=== PATIENT | female | born 1955 | race Caucasian/White ===

== ENCOUNTER 2019-09-13 19:49 | Emergency (ER) | payer BC ==
--- OUTSIDE RECORDS SUMMARY | 2019-09-13 20:01 | XMS REPORT | Continuity of Care Document ---
:1955 External Reference #:[id number] Author Name Anali Contreras NP Address [address] [place] [address] Problems Description No Information Available Social History Type Date Description Comments Sex Unknown Tobacco Use Start: Unknown Current Cigarette Smoker 1/2 Pack Daily Smoking Status Reviewed: 07/20/19 Current Cigarette Smoker 1/2 Pack Daily Tobacco Use Start: Unknown Patient is a current Smokes 1/2 PPD, which is smoker, smokes every day consistent with her previous Hx. Patient's smokes "like a chimney" so that patient gets abundant second-hand smoke. Allergies, Adverse Reactions, Alerts Active Allergies Reaction Severity Comments Date Morphine Sulfate Vomitting 07/04/1998 Bactrim Hives 12/01/2006 Medications Active Medications SIG Qnty Indications Ordering Provider Date Keflex 1 by mouth four 20caps Anali Samano 07/17/2019 500mg Capsules times a day JONATHAN Contreras Meloxicam 1 by mouth every 30tabs M25.562 Anali Samano 10/12/2018 15mg day JONATHAN Contreras Tablets Metaxalone 1 by mouth every 45tabs Anali Samano 01/12/2018 800mg 8h as needed JONATHAN Contreras Tablets muscle spasm Venlafaxine HCL ER 1 by mouth every 30tabs F41.1 Lorena Sanford 01/05/2018 day (needs to be JONATHAN Carreno 150mg Tablets ER filled capsules) 24HR Alogliptin-Metformin Take One Tablet By 60tabs E11.8 CRUZ Crawford HCL Mouth Twice A Day 12.5-1000mg Tablets Fluconazole take 1 tab today, 2tabs CRUZ Crawford 09/13/2017 150mg may repeat in 5 to Tablets 7 days Spiriva Handihaler inhale one dose by 30caps CRUZ Crawford 07/18/2016 mouth once daily 18mcg Capsules Ipratropium use bid- tid in 1box J18.9 [facility]/10[facility]2016 [place]/Albuterol nebulizer Sulfate 0.5-2.5(3)mg/3ML Solution Mirtazapine take one tablet by 30tabs G47.00 Anali Samano 06/10/2016 30mg mouth at bedtime JONATHAN Contreras Tablets Nexium 1 by mouth every 30caps Cheryl Jameson, [facility] 12/08/[address] Cabrera 1 three times a 90tabs F41.1 Anali Samano 04/30/2010 0.5mg Tablets day as needed JONATHAN Contreras anxiety [facility] Contour use as directed qd ox [facility] 05/31/2008 Blood Glucose Test - bid Strips Strips [facility] Microlet use in [facility] ox [facility] 05/31/2008 contour Misc Clopidogrel 1 by mouth every Unknown Bisulfate day 75mg Tablets History Medications Cefuroxime Axetil 1 by mouth 42tabs J01.90 Anali Samano 06/08/2019 - twice a day x JONATHAN Contreras 07/19/2019 500mg Tablets 21 days Medications Administered in Office Medication SIG Qnty Indications Ordering Provider Date Injection Subcutaneous Or Cheryl Jameson [facility] 11/28/2005 Intramuscular Injection Injection Subcutaneous Or Cheryl Jameson [facility] 11/28/2005 Intramuscular Injection Immunizations CPT Code Status Date Vaccine Lot # [id number] Given 10/12/2018 Influenza Vac, Quadrivalent, Slit Virus, Im [id number] Given 04/14/2001 Td Immunization, For Use In Individuals 7 Years Or Older Vital Signs Date Vital Result Comment 07/20/2019 10:43am BP Systolic 100 mmHg BP Diastolic 60 mmHg Heart Rate 78 /min Body Temperature 97.9 F Respiratory Rate 16 /min Height 60 inches 5'0" Weight 143.38 lb BMI (Body Mass Index) 28.0 kg/m2 06/08/2019 10:34am BP Systolic 140 mmHg BP Diastolic 80 mmHg Heart Rate 80 /min Body Temperature 97.9 F Respiratory Rate 16 /min Height 60 inches 5'0" Weight 141.00 lb BMI (Body Mass Index) 27.5 kg/m2 Results Test Date Facility Test Result H/L Range Note Comp Metabolic Panel 07/17/2019 [facility] [place] 135 mmol/L Normal 135-145 Potassium 4.4 mmol/L Normal 3.5-5.0 Chloride 101 mmol/L Normal 101-111 Co2 Carbon Dioxide 22 mmol/L Normal 22-32 Anion Gap 12 mmol/L High 2-11 Glucose 130 mg/dL High 70-100 Blood Urea Nitrogen 15 mg/dL Normal 6-24 Creatinine 0.84 mg/dL Normal 0.51-0.95 BUN/Creatinine Ratio 17.9 Normal 8-20 Calcium 10.1 mg/dL Normal 8.6-10.3 Total Protein 8.1 g/dL Normal 6.4-8.9 Albumin 4.8 g/dL Normal 3.2-5.2 Globulin 3.3 g/dL Normal 2-4 Albumin/Globulin Ratio 1.5 Normal 1-3 Total Bilirubin 0.50 mg/dL Normal 0.2-1.0 Alkaline Phosphatase 20 U/L Low 34-104 Alt 12 U/L Normal 7-52 Ast 14 U/L Normal 13-39 Egfr Non- 68.7 >60 Egfr 83.1 >60 1 CBC Auto Diff 07/17/2019 [facility] [place] White Blood Count 10.3 10^3/uL Normal 3.5- 10.8 Red Blood Count 4.84 10^6/uL Normal 3.70-4.87 Hemoglobin 14.7 g/dL Normal 12.0-16.0 Hematocrit 43 % Normal 35-47 Mean Corpuscular Volume 90 fL Normal 80-97 Mean Corpuscular Hemoglobin 30 pg Normal 27-31 Mean Corpuscular HGB Conc 34 g/dL Normal 31-36 Red Cell Distribution Width 15 % Normal 10-15 Platelet Count 269 10^3/uL Normal 150-450 Mean Platelet Volume 8.3 fL Normal 7.4-10.4 Abs Neutrophils 6.7 10^3/uL Normal 1.5-7.7 Abs Lymphocytes 2.7 10^3/uL Normal 1.0-4.8 Abs Monocytes 0.6 10^3/uL Normal 0-0.8 Abs Eosinophils 0.3 10^3/uL Normal 0-0.6 Abs Basophils 0.0 10^3/uL Normal 0-0.2 Abs Nucleated RBC 0.0 10^3/uL Granulocyte % 64.6 % Lymphocyte % 26.3 % Monocyte % 5.9 % Eosinophil % 2.8 % Basophil % 0.4 % Nucleated Red Blood Cells % 0.1 Laboratory test 07/17/2019 [facility] [place] Lactic Acid 2.1 mmol/L Critical high 0.5- 2.0 2 finding Laboratory test 07/16/2019 [facility] [place] Poc Activated 235 seconds 3 finding Clotting Time Laboratory test 07/16/2019 [facility] [place] Poc Activated 199 seconds 4 finding Clotting Time CBC Auto Diff 07/16/2019 [facility] [place] White Blood 10.7 10^3/uL Normal 3.5-10.8 Count Red Blood Count 4.76 10^6/uL Normal 3.70-4.87 Hemoglobin 14.6 g/dL Normal 12.0-16.0 Hematocrit 44 % Normal 35-47 Mean Corpuscular Volume 91 fL Normal 80-97 Mean Corpuscular Hemoglobin 31 pg Normal 27-31 Mean Corpuscular HGB Conc 34 g/dL Normal 31-36 Red Cell Distribution Width 16 % High 10-15 Platelet Count 270 10^3/uL Normal 150-450 Mean Platelet Volume 8.4 fL Normal 7.4-10.4 Abs Neutrophils 6.1 10^3/uL Normal 1.5-7.7 Abs Lymphocytes 3.2 10^3/uL Normal 1.0-4.8 Abs Monocytes 0.8 10^3/uL Normal 0-0.8 Abs Eosinophils 0.4 10^3/uL Normal 0-0.6 Abs Basophils 0.1 10^3/uL Normal 0-0.2 Abs Nucleated RBC 0.0 10^3/uL Granulocyte % 57.3 % Lymphocyte % 30.1 % Monocyte % 7.7 % Eosinophil % 3.8 % Basophil % 1.1 % Nucleated Red Blood Cells % 0.0 Inr/Protime 07/16/2019 [facility] [place] Inr 0.88 Normal 0.82-1.09 5 Basic Metabolic Panel 07/16/2019 [facility] [place] Sodium 141 mmol/L Normal 135-145 Chloride 109 mmol/L Normal 101-111 Co2 Carbon Dioxide 23 mmol/L Normal 22-32 Glucose 141 mg/dL High 70-100 Blood Urea Nitrogen 17 mg/dL Normal 6-24 Creatinine 0.80 mg/dL Normal 0.51-0.95 BUN/Creatinine Ratio 21.3 High 8-20 Calcium 10.2 mg/dL Normal 8.6-10.3 Egfr Non- 72.7 >60 Egfr 87.9 >60 6 Potassium TNP mmol/L 3.5-5.0 7 Anion Gap 9 mmol/L Normal 2-11 1 Because ethnic data is not always readily available, this report includes an eGFR for both -Americans and non- Americans. The National Kidney Disease Education Program (NKDEP) does not endorse the use of the MDRD equation for patients that are not between the ages of 18 and 70, are , have extremes of body size, muscle mass, or nutritional status, or are non- or non-. According to the National Kidney Foundation, irrespective of diagnosis, the stage of the disease is based on the level of kidney function: Stage Description GFR(mL/min/1.73 m(2)) 1 Kidney damage with normal or decreased GFR 90 2 Kidney damage with mild decrease in GFR 60-89 3 Moderate decrease in GFR 30-59 4 Severe decrease in GFR 15-29 5 Kidney failure <15 (or dialysis) 2 Critical Result LACT:2.1 Called to [id number] at: 12:21:24 by:[id number] Read back by:[id number] [facility] Severe Sepsis and Septic Shock Management Bundle Measure requires all lactic acids initially measuring >2.0 mmol/L be repeated. 3 [employer] Black Trainer: [id number] Reference Range: 74-125 seconds 4 [employer] Trainer: [id number] Reference Range: 74-125 seconds 5 Standard intensity warfarin therapeutic range: 2.0-3.0 High intensity warfarin therapeutic range: 2.5-3.5 6 Because ethnic data is not always readily available, this report includes an eGFR for both -Americans and non- Americans. The National Kidney Disease Education Program (NKDEP) does not endorse the use of the MDRD equation for patients that are not between the ages of 18 and 70, are , have extremes of body size, muscle mass, or nutritional status, or are non- or non-. According to the National Kidney Foundation, irrespective of diagnosis, the stage of the disease is based on the level of kidney function: Stage Description GFR(mL/min/1.73 m(2)) 1 Kidney damage with normal or decreased GFR 90 2 Kidney damage with mild decrease in GFR 60-89 3 Moderate decrease in GFR 30-59 4 Severe decrease in GFR 15-29 5 Kidney failure <15 (or dialysis) 7 Specimen Hemolyzed. Result may not be valid. Unable to report test result due to hemolysis. Verbal to ARY by YAHAIRA at 0813 on 07/16/19.Results read back accurately Procedures Date Code Description Status 11/06/2010 55568369 Colonoscopy Completed Medical Devices Description No Information Available Encounters Type Date Location Provider Dx Diagnosis Office Visit 06/08/2019 Main Office Anali Samano E11.8 Type 2 diabetes 10:30a JONATHAN Contreras mellitus with unspecified complications J01.90 Acute sinusitis, unspecified I70.213 [facility] [place] [facility] of extrm w intrmt omega, bi legs Assessments Date Code Description Provider 07/20/2019 E11.8 Type 2 diabetes mellitus with unspecified Anali Contreras NP complications 07/20/2019 I70.213 Atherosclerosis of [place] arteries of Anali Contreras NP extremities with inter 07/20/2019 M79.672 Pain in left foot Anali Contreras NP 06/08/2019 E11.8 Type 2 diabetes mellitus with unspecified Anali Contreras NP complications 06/08/2019 J01.90 Acute sinusitis, unspecified Anali Contreras NP 06/08/2019 I70.213 Atherosclerosis of [place] arteries of Anali Contreras NP extremities with inter Plan of Treatment 07/20/2019 - Anali Contreras NPE11.8 Type 2 diabetes mellitus with unspecified complicationsNew Labs:Hemoglobin A1c (Fma), Ordered: Microalb, Random (Fma/CMC/CTX), Ordered: 07/20/19Comments:Recommend yearly diabetic eye and foot exams, and check on blood pressure periodically. Goal blood sugar is less than 140 in the morning or A1c less than 7.I70.213 Atherosclerosis of [place] arteries of extremities with interComments:Followup with Erick Betancourt MD Anticipated left arterial angioplasty of lower pxxefvaodC52.672 Pain in left footNew Xrays:Foot Complete Min 3 Views Left, Scheduled: 07/20/19Comments:Finished a five-day course of antibiotics that was provided to you the emergency room My goal is to treat for 3 days after complete resolution, I anticipate that you are close to complete resolution and as the redness and swelling has gone down, I will refill the antibiotic in case we need a few more days. Since you are on the Plavix I don't think indomethacin is a great choice for the pain. Since the foot is improving with the antibiotics I am leaning more towards a diagnosis of cellulitis than I am gout. If the pain is not resolved at the end of the antibiotics I want you to get a foot x-ray so we can rule out bone spurs and bursitisonce your arms are healed back up from the IVs and blood draws we can check for a uric acid level as well as monitor your diabetic labsAllComments:Medication Management Patient Understands medications he 's taking? Yes No Are there Barriers to Adherence? Yes No Has the patient been asked about herbal supplements and therapies, andOTC meds? Yes No Care Plan1. Patient has been queried about patient's goals/preferences and functional/lifestyle goals at relevant visits. If relevant, describe: na2. Treatment goals as explained to the patient: above3. Are there barriers to meeting treatment goals? Yes No If Yes, please describe: disease process, comorbid conditions, polypharmacy, smoking4. Self-Management goals as described to the patient: Yes NoAs always, we strongly encourage a healthy diet and making physical activity a part of your every day life. If you have questions about how or where to start, please contact the office. Functional Status Description No Information Available Mental Status Description No Information Available Referrals Refer to Dr Garcia for Referral Status Appt Date Erick Betancourt MD Consult and treat. Office note, labs and Scheduled 2018 demographics faxed. Medical Office Building AT [facility] [place] [address] [phone]
--- OUTSIDE RECORDS SUMMARY | 2019-09-13 20:01 | XMS REPORT | Continuity of Care Document ---
:1955 External Reference #:[id number] Author Name Anali Contreras NP Address [address] [place] [address] Problems Description No Information Available Social History Type Date Description Comments Sex Unknown Tobacco Use Start: Unknown Current Cigarette Smoker 1/2 Pack Daily Smoking Status Reviewed: 08/02/19 Current Cigarette Smoker 1/2 Pack Daily Tobacco [...] Medications SIG Qnty Indications Ordering Provider Date Colchicine take two by mouth 6tabs Anali Samano 08/02/2019 0.6mg at first sign of Contreras, [employer] Tablets gout, then take one by mouth 1 hour later Tramadol HCL 1 by mouth every 8 15tabs Anali Samano 08/02/2019 50mg hours as needed Ben, [employer] Tablets Prednisone 4 by mouth x 2 19tabs M79.672 Anali Samano 08/02/2019 10mg days, then 3 by Contreras, [employer] Tablets mouth x 2 days, then 2 by mouth x 2 days,then 1 by mouth x 1 day - do not take with meloxicam Meloxicam 1 by mouth every 30tabs M25.562 Anali Samano 10/12/2018 15mg day Contreras, [employer] Tablets Metaxalone 1 by mouth every 45tabs Anali Samano 01/12/2018 800mg 8h as needed Contreras, [employer] Tablets muscle spasm Venlafaxine HCL ER 1 by mouth every 30tabs F41.1 Lorena Sanford 01/05/2018 day (needs to be JONATHAN Carreno 150mg Tablets ER filled capsules) 24HR Alogliptin-Metformin Take One Tablet By 60tabs E11.8 Cheryl Jameson [facility] HCL Mouth Twice A Day 12.5-1000mg Tablets Fluconazole take 1 tab today, 2tabs Cheryl Jameson [facility] 09/13/2017 150mg may repeat in 5 to Tablets 7 days Spiriva Handihaler inhale one dose by 30caps Cheryl Jameson [facility] 07/18/2016 mouth once daily 18mcg Capsules Mirtazapine take one tablet by 30tabs G47.00 Anali Samano 06/10/2016 30mg mouth at bedtime JONATHAN Contreras Tablets Ipratropium use bid- tid in 1box J18.9 Cheryl Jameson [facility] 06/10/2016 [place]/Albuterol nebulizer Sulfate 0.5-2.5(3)mg/3ML Solution Nexium 1 by mouth every 30caps Cheryl Jameson [facility] 12/08/[address] Cabrera 1 three times a 90tabs F41.1 Anali Samano 04/30/2010 0.5mg Tablets day as needed JONATHAN Contreras anxiety [facility] Contour use as directed qd 1Box Cheryl Jameson [facility] 05/31/2008 Blood Glucose Test - bid Strips Strips [facility] Microlet use in [facility] 1Box Cheryl Jameson [facility] 05/31/2008 contour Misc Clopidogrel 1 by mouth every Unknown Bisulfate day 75mg Tablets Lyrica 1 po qhs Unknown History Medications Keflex 1 by mouth four 20caps Anali Samano 07/17/2019 - 500mg Capsules times a day JONATHAN Contreras 07/29/2019 Cefuroxime Axetil 1 by mouth 42tabs J01.90 Anali Samano 06/08/2019 - twice a day x JONATHAN Contreras 07/19/2019 500mg Tablets 21 days Medications Administered in Office Medication SIG Qnty Indications Ordering Provider Date Injection Subcutaneous Or CRUZ Crawford 11/28/2005 Intramuscular Injection Injection Subcutaneous Or CRUZ Crawford 11/28/2005 Intramuscular Injection Immunizations CPT Code Status Date Vaccine Lot # [id number] Given 10/12/2018 Influenza Vac, Quadrivalent, Slit Virus, Im [id number] Given 04/14/2001 Td Immunization, For Use In Individuals 7 Years Or Older Vital Signs Date Vital Result Comment 08/02/2019 12:56pm BP Systolic 100 mmHg BP Diastolic 60 mmHg Heart Rate 88 /min Body Temperature 97.6 F Respiratory Rate 16 /min Height 60 inches 5'0" Weight 138.00 lb BMI (Body Mass Index) 26.9 kg/m2 07/20/2019 10:43am BP Systolic 100 mmHg BP Diastolic 60 mmHg Heart Rate 78 /min Body Temperature 97.9 F Respiratory Rate 16 /min Height 60 inches 5'0" Weight 143.38 lb BMI (Body Mass Index) 28.0 kg/m2 Results Test Date Facility Test Result H/L Range Note Laboratory test 08/02/2019 [facility] Hemoglobin A1c 6.7 % High 4.1- 5.7 finding (607)- - (Fma) Laboratory test 08/02/2019 [facility] [place](a) Uric Acid <pending> 2.5- 9.2 finding Comp Metabolic 07/17/2019 [facility] Sodium 135 mmol/L Normal 135-145 Panel Potassium 4.4 mmol/L Normal 3.5-5.0 Chloride 101 [...] 83.1 >60 1 CBC Auto Diff 07/17/2019 [facility] [place] Blood Count 10.3 10^3/uL Normal 3.5- [...] Blood Cells % 0.1 Laboratory test 07/17/2019 [facility] [place] Lactic Acid 2.1 mmol/L Critical high 0.5- 2.0 2 finding Laboratory test 07/16/2019 [facility] [place] Poc Activated 235 seconds 3 finding Clotting Time Laboratory test 07/16/2019 [facility] [place] Poc Activated 199 seconds 4 finding Clotting Time CBC Auto Diff 07/16/2019 [facility] [place] White Blood 10.7 10^3/uL Normal 3.5-10.8 Count [...] Red Blood Cells % 0.0 Inr/Protime 07/16/2019 [facility] Inr 0.88 Normal 0.82-1.09 5 Basic Metabolic Panel 07/16/2019 [facility] Sodium 141 mmol/L Normal 135-145 Chloride 109 [...] dialysis) 2 Critical Result LACT:2.1 Called to CRISPIN at: 12:21:24 by:[id number] Read back by:CRISPIN [place] Severe Sepsis and Septic Shock Management Bundle Measure requires all lactic acids initially measuring >2.0 mmol/L be repeated. 3 [employer] Professional: [id number] Reference Range: 74-125 seconds 4 Retail Services Professional: [id number] Reference Range: 74-125 seconds 5 Standard intensity [...] test result due to hemolysis. Verbal to [id number] by [id number] at 0813 on 07/16/19.Results read back accurately Procedures Date Code Description Status 11/06/2010 32151458 Colonoscopy Completed Medical Devices Description No Information Available Encounters Type Date Location Provider Dx Diagnosis Office Visit 07/20/2019 Main Office Anali Samano E11.8 Type 2 diabetes 10:30a JONATHAN Contreras mellitus with unspecified complications I70.213 [facility] [place] arteries of extrm w intrmt omega, bi legs M79.672 Pain in left foot Office Visit 06/08/2019 10:30a Main Office Anali Samano E11.8 Type 2 diabetes JONATHAN Contreras mellitus with unspecified complications J01.90 Acute sinusitis, unspecified I70.213 [facility] [place] arteries of extrm w intrmt omega, bi legs Assessments Date Code Description Provider 08/02/2019 M79.672 Pain in left foot Anali Contreras NP 08/02/2019 E11.40 Type 2 diabetes mellitus with diabetic Anali Contreras NP neuropathy, unspecified 07/20/2019 E11.8 Type 2 diabetes mellitus with unspecified Anali Contreras NP complications 07/20/2019 I70.213 Atherosclerosis of [place] arteries of Anali Contreras , [employer] extremities with inter 07/20/2019 M79.672 Pain in left foot Anali Contreras, [employer] 06/08/2019 E11.8 Type 2 diabetes mellitus with unspecified Anali Contreras, [employer] complications 06/08/2019 J01.90 Acute sinusitis, unspecified Anali Contreras, [employer] 06/08/2019 I70.213 Atherosclerosis of [place] arteries of Anali Contreras , [employer] extremities with inter Plan of Treatment 08/02/2019 - Anali Contreras, NPM79.672 Pain in left footNew Medication: Prednisone 10 mg - 4 by mouth x 2 days, then 3 by mouth x 2 days, then 2 by mouth x 2 days,then 1 bymouth x 1 day - do not take with meloxicamNew Labs:C Reactive Protein, Ordered: 08/02/19Comments:Since you are on the Plavix I don't think indomethacin is a great choice for the pain. Continue Meloxicam Add colchicine I want you to get a foot x-ray so we can rule out bone spurs and bursitisonce your arms are healed back up from the IVs and blood draws we can check for a uric acid level as well asmonitor your diabetic labsE11.40 Type 2 diabetes mellitus with diabetic neuropathy, unspecifiedNew Labs:Urine Microalbumin (Fma), Ordered: 08/02/19Comments:Recommend yearly diabetic eye and foot exams, and check on blood pressure periodically. Goal blood sugar is less than 140 in the morning or A1c less than 7.AllComments:Medication Management Patient Understands medications he 's taking? Yes No Are there Barriers to Adherence? Yes No Has the patient been asked about herbal supplements and therapies, andOTC meds? Yes No Care Plan1. Patient has been queried about patient's goals/preferences and functional/ lifestyle goals at relevant visits. If relevant, describe: na2. Treatment goals as explained to the patient: above3. Are there barriers to meeting treatment goals? Yes No If Yes, please describe:4. Self-Management goals as described to the patient: Yes NoAs always, we strongly encourage a healthy diet and making physical activity a part of your every day life. If you have questions about how or where to start, please contact the office. Functional Status Description No Information Available Mental Status Description No Information Available Referrals Refer to Reason for Referral Status Appt Date Erick Betancourt MD Consult and treat. Office note, labs and Scheduled 2018 demographics faxed. [facility] Office Building AT [facility] [place] [address] [phone]
--- OUTSIDE RECORDS SUMMARY | 2019-09-13 20:01 | XMS REPORT | Continuity of Care Document ---
:1955 External Reference #:[id number] Author Name Anali Contreras NP Address [address] [place] [address] Problems Description No Information Available Social History Type Date Description Comments Sex Unknown Tobacco Use Start: Unknown Current Cigarette Smoker 1/2 Pack Daily Smoking Status Reviewed: 09/13/19 Current Cigarette Smoker 1/2 Pack Daily Tobacco [...] Medications SIG Qnty Indications Ordering Provider Date Oxycodone HCL 1 by mouth four 28tabs M79.672 Anali Samano 09/13/2019 10mg times a day as JONATHAN Contreras Tablets needed pain Gabapentin 1 by mouth q hs 30caps E11.40 CRUZ Crawford 09/03/2019 300mg Capsules Colchicine take 1 by mouth 28tabs M79.672 CRUZ Crawford 08/02/2019 0.6mg twice a day Tablets Meloxicam 1 by mouth every 30tabs M25.562 Anali Samano 10/12/2018 15mg Tablets day JONATHAN Contreras Metaxalone 1 by mouth every 45tabs CRUZ Crawford 01/12/2018 800mg 8h as needed Tablets muscle spasm Venlafaxine HCL ER 1 by mouth every 30tabs F41.1 CRUZ Crawford 2017 day (needs to be 150mg Tablets ER 24HR filled capsules) Alogliptin-Metformin Take One Tablet 60tabs E11.8 Cheryl Jameson [facility] 2016 HCL By Mouth Twice A 12.5-1000mg Tablets Day E11.40 Fluconazole take 1 tab today, 2tabs Cheryl Jameson, [facility] 09/13/2017 150mg Tablets may repeat in 5 to 7 days Spiriva Handihaler inhale one dose by 30caps Cheryl Jameson, [facility] 07/18/2016 18mcg mouth once daily Capsules Ipratropium use bid- tid in 1box J18.9 Cheryl Jameson [facility] 06/10/2016 [place]/Albuterol nebulizer Sulfate 0.5-2.5(3)mg/3ML Solution Mirtazapine take one tablet by 30tabs G47.00 Anali Samano 06/10/2016 30mg Tablets mouth at bedtime JONATHAN Contreras Nexium 1 by mouth every 30caps Cheryl Jameson [facility] 12/08/[address] day Xanax 1 three times a day 90tabs F41.1 Cheryl Jameson [facility] 04/30/2010 0.5mg Tablets as needed anxiety Ascensia Contour Blood use as directed qd 1Box Cheryl Jameson [facility] 2007 Glucose Test Strips - bid Strips Ascensia Microlet use in ascensia 1Box Cheryl Jameson [facility] 05/31/2008 Misc contour Clopidogrel Bisulfate 1 by mouth every Unknown 75mg day Tablets Atorvastatin Calcium 1 by mouth every Unknown 20mg day MD Aisa Tablets History Medications Gabapentin take two to four 60caps E11.40 Cheryl Jameson, 08/27/2019 - 100mg capsules by mouth [facility] 09/03/2019 Capsules at bedtime Tramadol HCL 1 by mouth every 15tabs Anali Samano 08/02/2019 - 50mg 8 hours as needed JONATHAN Contreras 08/12/2019 Tablets Prednisone 4 by mouth x 2 19tabs M79.672 Anali Samano 08/02/2019 - 10mg days, then 3 by JONATHAN Contreras 08/25/2019 Tablets mouth x 2 days, then 2 by mouth x 2 days,then 1 by mouth x 1 day - do not take with meloxicam Keflex 1 by mouth four 20caps Anali Samano 07/17/2019 - 500mg times a day JONATHAN Contreras 07/29/2019 Capsules Cefuroxime Axetil 1 by mouth twice 42tabs J01.90 Anali Samano 06/08/2019 - a day x 21 days JONATHAN Contreras 07/19/2019 500mg Tablets Medications Administered in Office Medication SIG Qnty Indications Ordering Provider Date Injection Subcutaneous Or CRUZ Crawford 11/28/2005 Intramuscular Injection Injection Subcutaneous Or GENESIS CrawfordP 11/28/2005 Intramuscular Injection Immunizations CPT Code Status Date Vaccine Lot # [id number] Given 10/12/2018 Influenza Vac, Quadrivalent, Slit Virus, Im [id number] Given 04/14/2001 Td Immunization, For Use In Individuals 7 Years Or Older Vital Signs Date Vital Result Comment 09/13/2019 6:29pm BP Systolic 128 mmHg BP Diastolic 60 mmHg Heart Rate 90 /min Body Temperature 97.3 F Respiratory Rate 16 /min Height 60 inches 5'0" Weight 142.12 lb BMI (Body Mass Index) 27.8 kg/m2 08/27/2019 3:38pm BP Systolic 120 mmHg BP Diastolic 70 mmHg Heart Rate 72 /min Body Temperature 98.5 F Respiratory Rate 18 /min Weight 142.00 lb Results Test Date Facility Test Result H/L Range Note Uric Acid 24HR Urine 08/30/2019 [facility] Uric Acid, U 429 mg/24h 1, 2 Collection Duration 24 h Urine Volume 1300 mL Uric Acid Concentration 33 mg/dL 3 Laboratory test 08/04/2019 [facility] C Reactive 7.48 mg/L Normal <8.01 4 finding Protein Laboratory test 08/02/2019 [facility] Hemoglobin A1c 6.7 % High 4.1- 5.7 finding (607)- - (Fma) Laboratory test 08/02/2019 [facility](a) Uric Acid 8.1 mg/dL 2.5- 9.2 finding CBC Electronic 08/02/2019 [facility](a) WBC 12.4 High 4.0-10.0 5 Fma x10^3/UL RBC 4.99 x10^6/UL 3.93-6.00 HGB 15.0 g/dL 12.0-17.0 HCT 46 % 35-50 MCV 93.0 fL 80.0-95.0 MCH 30.1 pg 25.6-32.2 MCHC 32.3 g/dL 32.2-36.0 RDW-CV 14.4 % 11.6-14.4 PLT 385 x10^3/UL 163-400 MPV 10.0 fL 9.4-12.4 [place]# 8.83 x10^3/UL High 1.56-6.13 Lymph# 2.42 x10^3/UL 1.18-3.74 [place]# 0.62 x10^3/UL 0.24-0.82 Eos # 0.3 x10^3/UL 0.0-0.5 Baso # 0.13 x10^3/UL High 0.01-0.08 [place]% 70.0 % 34.0-70.0 Lymph % 20.0 % 20.0-52.0 [place]% 5.0 % 5.0-12.0 Eos% 2.6 % 0.7-7.0 Baso% 1.1 % 0.1-1.2 Comp Metabolic Panel 07/17/2019 [facility] Sodium 135 mmol/L Normal 135-145 Potassium 4.4 [...] Egfr Non- 68.7 >60 Egfr 83.1 >60 6 CBC Auto Diff 07/17/2019 [facility] White Blood Count 10.3 10^3/uL Normal 3.5- [...] Blood Cells % 0.1 Laboratory test 07/17/2019 [facility] Lactic Acid 2.1 mmol/L Critical high 0.5- 2.0 7 finding Laboratory test 07/16/2019 [facility] Poc Activated 235 seconds 8 finding Clotting Time Laboratory test 07/16/2019 [facility] Poc Activated 199 seconds 9 finding Clotting Time CBC Auto Diff 07/16/2019 [facility] White Blood 10.7 10^3/uL Normal 3.5-10.8 Count [...] Red Blood Cells % 0.0 Inr/Protime 07/16/2019 [facility] Inr 0.88 Normal 0.82-1.09 10 Basic Metabolic Panel 07/16/2019 [facility] Sodium 141 mmol/L Normal 135-145 Chloride 109 mmol/L Normal 101-111 Co2 Carbon Dioxide 23 mmol/L Normal 22-32 Glucose 141 mg/dL High 70-100 Blood Urea Nitrogen 17 mg/dL Normal 6-24 Creatinine 0.80 mg/dL Normal 0.51-0.95 BUN/Creatinine Ratio 21.3 High 8-20 Calcium 10.2 mg/dL Normal 8.6-10.3 Egfr Non- 72.7 >60 Egfr 87.9 >60 11 Potassium TNP mmol/L 3.5-5.0 12 Anion Gap 9 mmol/L Normal 2-11 1 COLLECTION START 08/29/19 0900 END 08/30/19 0700 2 REFERENCE VALUE <750 (Diet-Dependent) ADDITIONAL INFORMATION This test has been modified from the beauty school instructor's instructions. Its performance characteristics were determined by [facility] in a manner consistent with CLIA requirements. This test has not been cleared or approved by the U.S. Food and Drug Administration. The reference value is for a 24-hour collection. Specimens collected for other than a 24-hour time period are reported in unit of mg/dL for which reference values are not established. 3 Test Performed by: [address] [address] Piercing Artist: Rich Richardson M.D. Ph.D.; CLIA# [id number] 4 [id number] 5 RESULTS VERIFIED BY REPEAT ANALYSIS 6 Because ethnic data is not always [...] 5 Kidney failure <15 (or dialysis) 7 Critical Result LACT:2.1 Called to [id number] at: 12:21:24 by:[id number] Read back by:[id number] [place] Severe Sepsis and Septic Shock Management Bundle Measure requires all lactic acids initially measuring >2.0 mmol/L be repeated. 8 Overweaver: [id number] Reference Range: 74-125 seconds 9 Overweaver: [id number] Reference Range: 74-125 seconds 10 Standard intensity warfarin therapeutic range: 2.0-3.0 High intensity warfarin therapeutic range: 2.5-3.5 11 Because ethnic data is not always readily [...] 15-29 5 Kidney failure <15 (or dialysis) 12 Specimen Hemolyzed. Result may not be valid. Unable to report test result due to hemolysis. 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 E11.40 Type 2 diabetes mellitus with diabetic neuropathy, unsp Office Visit 07/20/2019 10:30a Main Office Anali Samano E11.8 Type 2 diabetes JONATHAN Contreras mellitus with unspecified complications I70.213 [place] arteries of extr w intrmt omega, bi legs M79.672 Pain in left foot Office Visit 06/08/2019 10:30a Main Office Anali Warner.8 Type 2 norbert Contreras NP mellitus with unspecified complications J01.90 Acute sinusitis, unspecified I70.213 Aths[facility] [place] arteries of extr w intrmt omega, bi legs Assessments Date Code Description Provider 09/13/2019 M79.672 Pain in left foot Anali Contreras NP 09/13/2019 I70.213 Atherosclerosis of [place] arteries of Anali Contreras NP extremities with inter 09/13/2019 L03.116 Cellulitis of left lower limb Anali Contreras NP 09/13/2019 Z23 Encounter for immunization Anali Contreras NP 08/27/2019 M79.672 Pain in left foot CRUZ Crawford 08/27/2019 E11.40 Type 2 diabetes mellitus with diabetic CRUZ Crawford neuropathy, unspecified 08/27/2019 F41.1 Generalized anxiety disorder CRUZ Crawford 08/02/2019 M79.672 Pain in left foot Anali Contreras NP 08/02/2019 E11.40 Type 2 diabetes mellitus with diabetic Anali Contreras NP neuropathy, unspecified 07/20/2019 E11.8 Type 2 diabetes mellitus with unspecified Anali Contreras NP complications 07/20/2019 I70.213 Atherosclerosis of [place] arteries of Anali Contreras , [employer]ICE COUNTER C[employer]IER extremities with inter 07/20/2019 M79.672 Pain in left foot Anali Contreras, [employer]IER 06/08/2019 E11.8 Type 2 diabetes mellitus with unspecified Anali Contreras, [employer]IER complications 06/08/2019 J01.90 Acute sinusitis, unspecified Anali Contreras, [employer] COUNTER C[employer]IER 06/08/2019 I70.213 Atherosclerosis of [place] arteries of Anali Contreras , [employer] COUNTER C[employer]IER extremities with inter Plan of Treatment 09/13/2019 - Anali Contreras, NPM79.672 Pain in left footNew Medication: Oxycodone HCL 10 mg - 1 by mouth four times a day as needed painComments:Since you are on the Plavix I don't think indomethacin is a great choice for the pain. Go to the hospital for Antibiotics, I will send in pain medicine for tomorrow discussed risks of medications, requesting higher doses, states understanding of risks and side effects, these are temporary medications - not for intermission coordinator useI70.213 Atherosclerosis of [place] arteries of extremities with interComments:Followup with Erick Betancourt MD Anticipated left arterial angioplasty of lower xyefyssqpX80.116 Cellulitis of left lower limbComments: called [facility] ED at at 1915 report given to BEBA Shea go straight to the hospital - discussed risk of gangrene, sepsis patient agreeable - with the limited blood flow plus the diffuse infection - this needsto be treated parenterally to maximize efficiency of the AbxZ23 Encounter for immunizationComments:Your flu vaccination has been administered. This protects you for the fall, winter and spring. It will decrease the likelihood that you will get the flu. If you are unlucky and get the flu, the symptoms will be less severe. Pneumovax has been administeredAllComments:Medication Management Patient Understands medications he 's taking? Yes No Are there Barriers to Adherence? Yes No Has the patient been asked about herbal supplements and therapies, andOTC meds? Yes No Care Plan1. Patient has been queried about patient's goals/ preferences and functional/lifestyle goals at relevant visits. If relevant, describe: na2. Treatment goals as explained to the patient: above3. Are there barriers to meeting treatment goals? Yes No If Yes, please describe: comorbid conditions, disease process, polypharmacy, smoking 4. Self-Management goals as described to the patient: [...] 2018 demographics faxed. Medical Office Building AT [facility] [address] [phone]
--- OUTSIDE RECORDS SUMMARY | 2019-09-13 20:01 | XMS REPORT | Continuity of Care Document ---
:1955 External Reference #:[id number] Author Name Erick Betancourt M.D. (transmitted by agent of provider Alee Ojeda) Address [address] [place] [address] Care Team Providers Name Role Phone Cheryl Jameson NP - Nurse Care Team Information Marine Engine Machinist [phone] Practitioner Anali Contreras, N.P. - Nurse Care Team Information Marine Engine Machinist Practitioner Minh Andrews MD - Manager Investigations Care Team Information Marine Engine Machinist Problems Active Problems Provider Date Intermittent claudication due to Erick Betancourt M.D. Onset: 06/23/2019 atherosclerosis of [place] artery of limb Arthralgia of the ankle and/or foot Erick Betancourt M.D. Onset: 08/11/2019 Social History Type Date Description Comments Sex Unknown ETOH Use Has consumed alcohol in the past Tobacco Use Start: Unknown Patient is a current half pack a day smoker, smokes every day Smoking Status Reviewed: 08/11/19 Patient is a current half pack a day smoker, smokes every day Exercise Type/Frequency Does not exercise Allergies, Adverse Reactions, Alerts Active Allergies Reaction Severity Comments Date Bactrim 06/23/2013 Morphine 06/23/2019 Medications Active Medications SIG Qnty Indications Ordering Date Provider Clopidogrel Bisulfate 1 by mouth every 90tabs Erick Gtz 08/10/2019 day Soni Betancourt 75mg Tablets Atorvastatin Calcium Atorvastatin 20 mg 90tabs Erick Gtz 07/22/2019 PO QHS Do not start Soni Betancourt 20mg Tablets until after Lipid Panel and LFT's drawn Alogliptin-Metformin Unknown HCL 12.5-1000mg Tablets Venlafaxine HCL ER 1 by mouth every Unknown 75mg day Tablets ER 24HR Meloxicam 1 by mouth every Unknown 15mg Tablets day Mirtazapine take one tablet by Unknown 30mg mouth at bedtime Tablets Alprazolam 1/2-1 tab twice Unknown 0.5mg daily as needed for Tablets anxiety Skelaxin take one Unknown 800mg Tablets capsule/tablet by mouth twice daily as needed for pain/ spasms, avoid with driving Acetaminophen 2 every 6 hours as Unknown 500mg needed Tablets Immunizations Description No Information Available Vital Signs Date Vital Result Comment 08/11/2019 8:43am Height 60 inches 5'0" Weight 140.12 lb without shoes Heart Rate 80 /min radial BP Systolic Sitting 134 mmHg Lue reg cuff BP Diastolic Sitting 68 mmHg Lue reg cuff BMI (Body Mass Index) 27.4 kg/m2 06/23/2019 12:24pm Height 60 inches 5'0" Weight 143.00 lb no shoes Heart Rate 78 /min rt radial BP Systolic Sitting 122 mmHg ule reg cuff BP Diastolic Sitting 70 mmHg ule reg cuff BMI (Body Mass Index) 27.9 kg/m2 Results Test Date Facility Test Result H/L Range Note Lipid Profile 07/27/2019 [facility] Triglycerides 194 mg/dL 1, 2 (Trig/Chol/HDL) [address] [place] [address] [phone] Cholesterol 180 mg/dL 3 HDL Cholesterol 39.6 mg/dL 4 LDL Cholesterol 102 mg/dL 5 Liver Function 07/27/2019 [facility] Total Protein 7.0 g/dL Normal 6.4-8.[address] [place] [address] [phone] Albumin 4.6 g/dL Normal 3.2-5.2 Globulin 2.4 g/dL Normal 2-4 Albumin/Globulin Ratio 1.9 Normal 1-3 Total Bilirubin 0.40 mg/dL Normal 0.2-1.0 Direct Bilirubin 0.10 mg/dL Normal 0.03-0.18 Indirect Bilirubin 0.3 mg/dL Normal 0.3-1.0 Alkaline Phosphatase 18 U/L Low 34-104 Alt 12 U/L Normal 7-52 Ast 15 U/L Normal 13-39 Laboratory test 07/16/2019 [facility] Poc Activated 235 seconds [address] [place] [address] [phone] Laboratory test 07/16/2019 [facility] Poc Activated 199 seconds [address] [place] [address] [phone] CBC Auto Diff 07/16/2019 [facility] White Blood 10.7 10^3/uL Normal 3.5-[address] Count 0.8 [place] [address] [phone] Red Blood Count 4.76 10^6/uL Normal 3.70-4.87 [...] Red Blood Cells % 0.0 Inr/Protime 07/16/2019 [facility] Inr 0.88 Normal 0.82-1.[address] [place] [address] [phone] Basic Metabolic 07/16/2019 [facility] Sodium 141 mmol/L Normal 135-[address] [place] [address] [phone] Chloride 109 mmol/L Normal 101-111 Co2 Carbon Dioxide 23 mmol/L Normal 22-32 Glucose 141 mg/dL High 70-100 Blood Urea Nitrogen 17 mg/dL Normal 6-24 Creatinine 0.80 mg/dL Normal 0.51-0.95 BUN/Creatinine Ratio 21.3 High 8-20 Calcium 10.2 mg/dL Normal 8.6-10.3 Egfr Non- 72.7 >60 Egfr 87.9 >60 9 Potassium TNP mmol/L 3.5-5.0 10 Anion Gap 9 mmol/L Normal 2-11 Basic Metabolic 07/14/2019 [facility] Sodium 140 mmol/L Normal 135-[address] [place] [address] [phone] Potassium 5.0 mmol/L Normal 3.5-5.0 Chloride 105 mmol/L Normal 101-111 Co2 Carbon Dioxide 25 mmol/L Normal 22-32 Anion Gap 10 mmol/L Normal 2-11 Glucose 120 mg/dL High 70-100 Blood Urea Nitrogen 22 mg/dL Normal 6-24 Creatinine 0.98 mg/dL High 0.51-0.95 BUN/Creatinine Ratio 22.4 High 8-20 Calcium 10.3 mg/dL Normal 8.6-10.3 Egfr Non- 57.5 >60 Egfr 69.6 >60 11 1 FASTING 2 Desirable: <150 Borderline High: 150-199 High: 200-499 Very High: >500 3 Desirable: <200 Borderline High: 200-239 High: >239 4 Low: <40 Desirable: 40-60 High: >60 5 Desirable: <100 Near Optimal: 100-129 Borderline High: 130-159 High: 160-189 Very High: >189 6 Body Design Checker: [id number] Reference Range: 74-125 seconds 7 Body Design Checker: [id number] Reference Range: 74-125 seconds 8 Standard intensity warfarin therapeutic range: 2.0-3.0 High intensity warfarin therapeutic range: 2.5-3.5 9 Because ethnic data is not always readily [...] 15-29 5 Kidney failure <15 (or dialysis) 10 Specimen Hemolyzed. Result may not be valid. Unable to report test result due to hemolysis. Verbal to [id number] by [email or web address] at 0813 on 07/16/19.Results read back accurately 11 Because ethnic data is not always [...] 15-29 5 Kidney failure <15 (or dialysis) Procedures Date Code Description Status 07/16/2019 97836 Angio Extremity, Bilateral Completed 07/16/2019 59949 Revascularization,Endovascular,Transluminal Angioplasty Completed 07/16/2019 07024 Revascularization,Endovascular,Addtl Ipsilateral Iliac Completed Vessel 07/16/2019 38730 Revascularization,Endovascular,Open/Percutaneous,Iliac Completed Artery 07/16/2019 23731 Moderate Sedation Services; Same Phys Each Additional 15 Completed Mins 07/16/2019 90074 Moderate Sedation Services; Same Phys Intl 15 Mins; PT >= Completed 5 Years 07/16/2019 79278 Ultrasound Guidance For Vascular Access Completed Medical Devices Description No Information Available Encounters Type Date Location Provider Dx Diagnosis Office Visit 08/11/2019 [facility] Erick Betancourt, I70.213 [facility] [place] 8:30a [facility] arteries of extrm w intrmt omega, bi legs M25.572 Pain in left ankle and joints of left foot Office Visit 06/23/2019 11:30a [facility] Erick Gtz I70.213 [facility] [place] [facility] Betancourt M.D. arteries of extrm w intrmt omega, bi legs Assessments Date Code Description Provider 08/11/2019 I70.213 Atherosclerosis of [place] arteries of Erick Betancourt M.D. extremities with intermittent claudication, bilateral legs 08/11/2019 M25.572 Pain in left ankle and joints of left foot Erick Betancourt M.D. 07/16/2019 I70.222 Atherosclerosis of [place] arteries of Erick Betancourt M.D. extremities with rest pain, left leg 07/16/2019 I70.223 Atherosclerosis of [place] arteries of Erick Betancourt M.D. extremities with rest pain, bilateral legs 06/23/2019 I70.213 Atherosclerosis of [place] arteries of Erick Betancourt M.D. 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 As I discussed with her there are otherendovascular options including atherectomy and stenting.I discussed with her the following options:1. Undergo no further interventions and adhere to exercise therapy and possible pharmacologic therapy(e.g. cilostazol).2. Referral to a vascular surgeon to discuss the option of bypass surgery.3. Repeat angiography with the intention of either performing atherectomy or stenting to achieve more durable patency.At the conclusion of our conversation the patient opted to repeat angiography with the intent of performing a more involved endovascular procedure.I once again emphasized very clearly the direct causal relationship between vasculopathy and cigarette smoking and encouraged her to stop smoking. Specifically I stated that continued cigarette smoking will increase the likelihood of a repeated failed endovascular intervention.M25.572 Pain in left ankle and joints of left footComments:As I discussed with the patient, clinically her left great toe pain appears to be gout and I advisedher to discuss gout treatment further with her primary care provider. Functional Status Description No Information Available Mental Status Description No Information Available Referrals Description No Information Available
--- NOTE | 2019-09-13 20:37 | ED ---
Lower Extremity - HPI Summary HPI Summary: This patient is a 64 year old female presenting to [facility] with a chief complaint of left foot pain, redness, and swelling. She states this has been an ongoing problem for several months but she woke up in greater pain today. The patient went to the [facility] today and they told her to come here due to infection of the foot. She rates her pain 10/10 in severity. Pt had angioplasty done in June, it didn't work. Pt has another surgery scheduled for Friday. - History of Current Complaint Chief Complaint: EDExtremityLower Stated Complaint: SWOLLEN LEFT FOOT PER PT Time Seen by Provider: 09/13/19 20:18 Hx Obtained From: Patient Onset/Duration: Weeks Severity Currently: Severe Pain Intensity: 10 Pain Scale Used: 0-10 Numeric Associated Signs And Symptoms: Positive: Swelling, Redness - Allergies/Home Medications Allergies/Adverse Reactions: Allergies Allergy/AdvReac Type Severity Reaction Status Date / Time Sulfa (Sulfonamide Allergy Severe Anaphylatic Verified 09/13/19 19:53 Antibiotics) Shock sulfamethoxazole Allergy Severe Anaphylatic Verified 09/13/19 19:53 Shock trimethoprim Allergy Severe Hives Verified 09/13/19 19:53 morphine Allergy Nausea And Verified 09/13/19 19:53 Vomiting Home Medications: Home Medications ALPRAZolam TAB* [Xanax TAB*] 0.5 - 1 tab PO BID PRN 09/13/19 [History Confirmed 09/13/19] Atorvastatin* [Lipitor*] 20 mg PO BEDTIME 09/13/19 [History Confirmed 09/13/19] Meloxicam(NF) [Mobic(NF)] 15 mg PO DAILY 09/13/19 [History Confirmed 09/13/19] Mirtazapine TAB* [Remeron TAB*] 30 mg PO BEDTIME PRN 09/13/19 [History Confirmed 09/13/19] PMH/Surg Hx/FS Hx/Imm Hx Endocrine/Hematology History: Reports: Hx Diabetes - DM II Cardiovascular History: Denies: Hx Angina, Hx Hypertension Respiratory History: Denies: Hx Asthma, Hx Chronic Obstructive Pulmonary Disease (COPD) History: Denies: Hx Chronic Renal Failure Sensory History: Denies: Hx Contacts or Glasses, Hx Hearing Aid Opthamlomology History: Denies: Hx Contacts or Glasses - Surgical History Surgery Procedure, Year, and Place: 1975 ovarian cyst,1976 ovarian cyst,1981 right oopherectomy, 1983 hysterectomy, pilonidal cyst, 1998 oopherectomy and excision of scar tissue. - Immunization History Date of Tetanus Vaccine: 1999 Date of Influenza Vaccine: 2011 Infectious Disease History: No Infectious Disease History: Denies: Traveled Outside the [place] in Last 30 Days - Family History Known Family History: Positive: Hypertension, Diabetes - Social History Alcohol Use: None Alcohol Amount: 2 Substance Use Type: Reports: None Smoking Status (MU): Light Every Day Tobacco Smoker Type: Cigarettes Amount Used/How Often: 1/2 PPD Length of Time of Smoking/Using Tobacco: 11/24/1974 Have You Smoked in the Last Year: No Review of Systems Negative: Fever Positive: Edema, Other - Left foot pain Positive: Other - Erythema on left foot. All Other Systems Reviewed And Are Negative: Yes Physical Exam - Summary Physical Exam Summary: Appearance: The patient is well-nourished in no acute distress and in no acute pain. Skin: The skin is warm and dry, and skin color reflects adequate perfusion. Left toes two centimeters proximal to the dorsal of the foot are erythemetous and tender. Good capillary refill. HEENT: The head is normocephalic and atraumatic. The pupils are equal and reactive. The conjunctivae are clear and without drainage. Nares are patent and without drainage. Mouth reveals moist mucous membranes, and the throat is without erythema and exudate. The external ears are intact. The ear canals are patent and without drainage. The tympanic membranes are intact. Neck: The neck is supple with full range of motion and non-tender. There are no carotid bruits. There is no neck vein distension. Respiratory: Chest is non-tender. Lungs are clear to auscultation and breath sounds are symmetrical and equal. Cardiovascular: Heart is regular rate and rhythm. There is no murmur or rub auscultated. There is no peripheral edema and pulses are symmetrical and equal. Abdomen: The abdomen is soft and non-tender. There are normal bowel sounds heard in all four quadrants and there is no organomegaly palpated. Musculoskeletal: There is no back tenderness noted. Extremities are non-tender with full range of motion. There is good capillary refill. There is no peripheral edema or calf tenderness elicited. Neurological: Patient is alert and oriented to person, place and time. The patient has symmetrical motor strength in all four extremities. Cranial nerves are grossly intact. Deep tendon reflexes are symmetrical and equal in all four extremities. Psychiatric: The patient has an appropriate affect and does not exhibit any anxiety or depression. Triage Information Reviewed: Yes Vital Signs On Initial Exam: Initial Vitals Temp Pulse Resp BP Pulse Ox 97.5 F 95 15 135/92 95 09/13/19 19:50 09/13/19 19:50 09/13/19 19:50 09/13/19 19:50 09/13/19 19:50 Vital Signs Reviewed: Yes Procedures - Sedation Patient Received Moderate/Deep Sedation with Procedure: No Diagnostics - Vital Signs Vital Signs Temp Pulse Resp BP Pulse Ox 09/13/19 19:50 97.5 F 95 15 135/92 95 - Laboratory Result Diagrams: 09/13/19 21:42 09/13/19 21:42 Lab Statement: Any lab studies that have been ordered have been reviewed, and results considered in the medical decision making process. - Radiology Left foot XR Radiology Interpretation Completed By: ED Physician Summary of Radiographic Findings: Chronic changes. Pending official radiologist report. Lower Extremity Course/Dx - Course Course Of Treatment: Ms. Begum has had arterial insufficiency in her left foot for a long time. In the last several days, she has had increased redness and pain in all of the toes. She was advised by her providers to come in and get IV antibiotics. She was non-toxic in appearance and her vitals were stable. She has no leukocytosis and her plain film shows only chronic changes. I'm not clear that she need antibiotics at this time but the better part of prudence is to treat and get her follow up. - Diagnoses Provider Diagnoses: Arterial insufficiency, Cellulitis Discharge ED - Sign-Out/Discharge Documenting (check all that apply): Patient Departure - Discharge Signing out patient TO: Yris Smith - [facility] - Discharge Plan Condition: Stable Disposition: HOME Patient Education Materials: Cellulitis (ED) Referrals: Ben CASTILLO,JONATHAN Briones [Primary Care Provider] - Additional Instructions: Return to ED with new or worsening symptoms. - Billing Disposition and Condition Condition: STABLE Disposition: Home - Attestation Statements Document Initiated by Scribe: Yes Documenting Scribe: Ronald Cuadra Provider For Whom Scribe is Documenting (Include Credential): MD Zaina Chandler Attestation: I, Ronald Cuadra, scribed for Manohar Howe MD on 09/16/19 at 1648. Scribe Documentation Reviewed: Yes Provider Attestation: The documentation as recorded by the scribe, Ronald Cuadra accurately reflects the service I personally performed and the decisions made by me, Manohar Howe MD Status of Scribe Document: Viewed
[2019-09-13] MEDS ORDERED: Vancomycin(*) 1,000 MG in NS 0.9% 250 ML* 250 ML IVPB ONE (21:00)
[2019-09-13 21:49] LABS: ABS Basophils 0.1 10^3/ul (0-0.2); ABS Eosinophils 0.5 10^3/ul (0-0.6); ABS Monocytes 0.8 10^3/ul (0-0.8); ABS Neutrophils 4.5 10^3/ul (1.5-7.7); Eosinophil % 5.2 %; Hematocrit 40 % (35-47); Hemoglobin 13.1 g/dL (12.0-16.0); Lymphocyte % 33.9 %; Mean Corpuscular HGB Conc 33 g/dL (31-36); Mean Corpuscular Hemoglobin 30 pg (27-31); Mean Corpuscular Volume 92 fL (80-97); Mean Platelet Volume 8.3 fL (7.4-10.4); Platelet Count 271 10^3/uL (150-450); Red Blood Count 4.33 10^6 /uL (3.70-4.87); Red Cell Distribution Width 16 % (10-15); White Blood Count 8.8 10^3/uL (3.5-10.8)
[2019-09-13 22:05] LABS: Albumin 4.3 g/dL (3.2-5.2); Albumin/Globulin Ratio 1.6 (1-3); BUN/Creatinine Ratio 26.2 (8-20); Calcium 9.5 mg/dL (8.6-10.3); EGFR African American 65.7 (>60); EGFR Non-African American 54.3 (>60); Globulin 2.7 g/dL (2-4); Potassium 4.4 mmol/L (3.5-5.0); Total Bilirubin 0.3 mg/dL (0.2-1.0)
[2019-09-13 22:06] LABS: INR 0.95 (0.82-1.09)
[2019-09-13 23:53] VITALS: BP 89/65
== END 2019-09-13 23:45 | disposition home or self-care (01) ==
LOC: ED 19:49
DX: L03.116 Cellulitis of left lower limb (principal); I77.1 Stricture of artery; E11.9 Type 2 diabetes mellitus without complications; F17.210 Nicotine dependence, cigarettes, uncomplicated; Z79.899 Other long term (current) drug therapy; Z90.721 Acquired absence of ovaries, unilateral; Z90.710 Acquired absence of both cervix and uterus; Z88.1 Allergy status to other antibiotic agents; Z88.5 Allergy status to narcotic agent; Z88.2 Allergy status to sulfonamides
CPT/HCPCS: 36415; 80053; 83605; 85025; 85610; 87040; 96365; 96366; 99283; J3370

== ENCOUNTER → 2019-09-17 | Day surgery (SDC) | payer BC ==
[~2019-09-17] MED LIST: Aspirin 81 mg CHEW TAB* 81 MG TAB.CHEW ONE; Flumazenil* 0.1 MG/ML 5 ML MDV ONE; Heparin 2 UNITS/ML IVPREMIX* 1,000 ML IV ONE; Heparin 2 UNITS/ML IVPREMIX* 2,000 ML IV ONE; Heparin(*) 1000 UNIT/ML 10 ML VIAL CATH LAB IV ONE; Iodixanol 320 (CONTRAST) 100 ML SDV ONE; LORazepam TAB(*) 1 MG ONE; Lidocaine 1% INJ* 10 MG/ML 30 ML SDV ONE; Midazolam* 1 MG/ML 5 ML VIAL (5 MG) ONE; Naloxone* 0.4 MG/ML 1 ML VIAL ONE; ceFAZolin 1 GM* X ONE DOSE (AddVan) IVPB; fentaNYL* 50 MCG/ML 2 ML VIAL (100 MCG VIAL) ONE; fentaNYL* 50 MCG/ML 5 ML VIAL (250 MCG VIAL) ONE; nitroGLYCERIN DRIP* 25,000 MCG/250 ML BTL ONE
[2019-09-17 15:01] VITALS: BP 103/60
--- NOTE | 2019-09-17 15:58 | PN ---
Progress Note - Progress Note Date of Service: 09/17/19 SOAP: Subjective: Dao pain at right groin. Foot feels warm. No new pain. Objective: Selected Entries 09/17/19 09/17/19 14:47 15:01 Heart Rate 73 Respiratory 20 Rate Blood Pressure 103/60 (mmHg) Blood Pressure 66 Mean O2 Sat by Pulse 91 Oximetry Patient on Room Yes Air NAD, AAO x 3 Right groin is soft, nontender Dry blood on dressing. Left foot warm to touch and pink 2+ pluse at left SFA, 1+ on popliteal, 1+ on LEARNING AND DEVELOPMENT DIRECTOR Assessment: 64 YOF status post Pelvic and LLE arteriography, revascularization and stenting of left SFA and stenting of left femoral profundus. Plan: 1. ASA 81 mg PO daily and Plavix 75 mg PO daily for life. 2. DC to home. 3. I carefully explained the details of the procedure including the necessity to stent the left femoral profundus. I also carefully explained that I believe she has Buerger's Disease and she is at risk of losing her foot and/or toes if she does not stop smoking.
== END | disposition home or self-care (01) ==
LOC: CHICATH 07:00
PROVIDERS: ATTEND Radiology Diagnostic Radiology
DX: I70.213 Atherosclerosis of native arteries of extremities with intermittent claudication, bilateral legs (principal); M25.572 Pain in left ankle and joints of left foot; E78.5 Hyperlipidemia, unspecified; F17.210 Nicotine dependence, cigarettes, uncomplicated; E11.9 Type 2 diabetes mellitus without complications; Z79.84 Long term (current) use of oral hypoglycemic drugs
CPT/HCPCS: 75736; 76937; 85347; 99156; 99157; A9270-GY; C1725; C1760; C1769; C1874; C1876; C1887; C1894; J0690; J1644; J2250; J2310; J3010